=== PATIENT | female | born 1935 | race Caucasian/White ===

== ENCOUNTER 2024-07-28 09:48 | Emergency (ER) | payer OTHER, SELFPAY ==
--- OUTSIDE RECORDS SUMMARY | 2024-07-28 09:51 | XMS_ITS | Clinical Summary ---
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 Gender Identity Not on file Sexual Orientation Not on file Plan of Treatment Health Maintenance Due Date Last Done Comments ADVANCE CARE PLANNING 1936 ANNUAL REVIEW OF HM ORDERS 1936 DEXA 1936 DTAP/TDAP/TD IMMUNIZATION (1 - Tdap) 1961 FALL RISK ASSESSMENT 2001 ZOSTER IMMUNIZATION (2 of 3) 07/30/2007 06/04/2007 RSV VACCINE (1 - 1-dose 75+ series) 2011 COVID-19 Vaccine (3 - season) 2024 07/04/2020, 06/13/2020 INFLUENZA VACCINE (#1) 2024 0, 02/25/2019, 02/24/2019, Additional history exists PHQ-2 (once per calendar year) 2024 Pneumococcal Vaccine: 50+ Years Completed 07/26/2016, 07/30/2012 HPV IMMUNIZATION Aged Out No longer e ligible based on patient's age to complete this topic MENINGITIS IMMUNIZATION Aged Out No l onger eligible based on patient's age to complete this topic RSV MONOCLONAL ANTIBODY Aged Out No l onger eligible based on patient's age to complete this topic Insurance [facility] MEDICARE ADVANTAGE
--- OUTSIDE RECORDS SUMMARY | 2024-07-28 09:51 | XMS_ITS | Clinical Summary ---
Author Organization [facility] Address [address] [place] [id number] Care Team Providers Care Erector Operator Name Role Phone Regine Anderson MD Primary Care Prov ider Allergies Active Allergy Reactions Criticality Noted Date Comments Penicillins Sulfa (Sulfonamide Antibiotics) Medications MULTIVITAMIN TAB Once daily 0 06/04/2007 A ctive loratadine (CLARITIN) 10 mg tablet Take 1 tablet by mouth once daily. 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 Symptomatic menopausal or female climacteric [place] 06/04/2007 Allergic rhinitis, cause unspecified 06/04/2007 Osteoporosis, unspecified 06/04/2007 Encounters Date Type Department Care Team Description 06/03/2024 3:00 PM SHOESHINER Office Visit [facility] [address] [place] [address] Edyta Choi PA Rash (Left arm, 4 days) 06/03/2024 Travel from Last 3 Months Immunizations Immunization Administration Dates Next Due AMB Influenza, IIV3 (Age >=3 years)(Flu Clinic Only) 02/15/2009,05/12/2008 COVID-19 vaccine (Buzzoola NTManomasa 30mcg/0.3mL) PF, MDV 06/13/2020 Hepatitis A (Adult) 02/10/2002 Influenza RIV4 (Age 18+ Year s) PRESERV FREE 02/25/2019 Influenza, High-dose Inactivated 019,02/17/2018,02/27/2017,2015,02/01/2014 Influenza, High-dose Quadriv alent Inactivated 04/25/2023,02/26/2022,02/17/2021,2019 Influenza, IIV3 (Age >=3 years) 02/27/20 13,02/27/2012,03/13/2010,2006,03/27/2005 Influenza, IIV4 02/08/2014 Influenza, IIV4 (=>6mos) MDV 02/07/2015 Pneumococcal Poly,23-Valent (Pneumovax) 07/30/2012 Pneumococcal conj 13-Valent (Prevnar 13) 07/26/2016 Td (Age >=7 Years) 06/22/2004 Tdap 07/30/2012 Typhoid (injectable) 02/10/2002 Zoster (Zostavax-ZVL, live) 06/04/2007 Family History Medical History Relation Name Comments Heart Disease Brother 1 open heart radha g early 50s Heart Disease Brother 2 open heart radha g, had valve replaced. Good Health Daughter 1 Good Health Daughter 2 Good Health Daughter 3 Heart Disease Father Heart Disease Mother open heart radha g 75, lived to 90 Diabetes Sister Heart Disease Sister Anesthesia Problem No Family History Blood Disease No Family History Relation Name Status Comments Brother 1 Brother 2 Daughter 1 Daughter 2 Daughter 3 Father (Age 68) [place] Mother (Age 90) Sister Social History Tobacco Use Types Packs/Day Years Used Date Smoking Tobacco: Never Smokeless Tobacco: Never Tobacco Cessation:Counseling Given: Yes Alcohol Use Standard Drinks/Week Comments Not Currently 1.7 (1 standard drink = 0.6 oz p ure alcohol) 2-3 drinks per month. PHQ-2 Answer Date Recorded PHQ-2 TOTAL SCORE 1 08/02/2021 Social Connections Answer Date Recorded Do you often feel lonely or isolated from those around you? 0 07/26/2023 Financial Resource Strain Answer Date R ecorded Difficulty of Paying Living Expenses 3 07/26/2023 Difficulty of Paying Living Expenses Not on file 07/26/2023 Food Insecurity Answer Date Recorded Do you worry your food will run out before you are able to buy more? 1 07/26/2023 Transportation Needs Answer Date Record ed Does lack of transportation keep you from medica l appointments? 1 07/26/2023 Does lack of transportation keep you from work, meetings or getting things that you need? 1 07/26/2023 Housing Stability Answer Date Recorded What is your housing situation today? 1 07/26/2023 Utilities Answer Date Recorded Do you have trouble paying f or utilities (for example, heat, electricity, water, phone)? 1 07/26/2023 Comments No Sex and Gender Information Value Date Recorded Sex Assigned at Not on file Legal Sex Female 6:02 AM SHOESHINER Gender Identity Not on file Sexual Orientation Not on file Obstetrics History Para Term AB IAB SAB Ectopic Multiple Livin g Live Births 3 3 3 3 Date Outcome GA Total Labor Labor/2nd/3rd Weight Sex Type Anes PTL Mendy A1 A5 Name Clin Term Term Term Last Filed Vital Signs Vital Sign Reading Time Taken Comments Blood Pressure 186/75 06/03/2024 3:06 PM SHOESHINER Pulse 76 06/03/2024 3:06 PM SHOESHINER Temperature 36.7 C (98.1 F) 01/02/2022 1:04 PM CDT Respiratory Rate 16 01/02/2022 1:04 PM CDT Oxygen Saturation 99% 06/03/2024 3:06 PM SHOESHINER Inhaled Oxygen Concentration - - Weight 50 kg (110 lb 4.8 oz) 06/03/2024 3:26 PM SHOESHINER Height 157.5 cm (5' 2) 03/29/2020 1:23 PM SHOESHINER Body Mass Index 20.17 03/29/2020 1:23 PM SHOESHINER Plan of Treatment Health Maintenance Due Date Last Done Comments Zoster (shingles) series for age 50+ (2 of 3) 07/30/2007 06/04/2007 RSV vaccine for adults or (1 - 1-dose 75+ series) 2011 Medicare Wellness for age 65+ 02/28/2020, 11/12/2017, 07/26/2016 BMI (ht and wt on same day) for age 18+ 03/29/2021 03/29/2020, 02/27/2019, 11/12/2017, Additional history exists Tetanus booster 07/30/2022 07/30/2012, 06/22/2004 Depression screening for age 12+ 08/02/2022 08/02/2021, 04/05/2020, 04/01/2020, Additional history exists COVID-19 vaccine series ( season) 2024 03/23/2022, 09/30/2021, 03/15/2021, Additional history exists Influenza Vaccine (#1) 2024 9, 02/24/2019, 02/17/2018, Additional history exists Tdap Completed 07/30/2012 DEXA/DXA scan for age 65+ Completed 08/02/2012, 11/2007 Pneumococcal series for age 50+ Completed 7, 07/30/2012 Procedures Procedure Name Priority Date/Time Associated Diagnosis Comments XR DXA BONE DENSITY 2 SITES AXIAL Routine 08/02/2012 9:17 AM CDT OSTEOPOROSIS from Last 3 Months or Most Recently Relevant to Health Maintenance Results * XR DXA BONE DENSITY 2 SITES (08/02/2012 9:17 AM CDT) Anatomical Region Laterality Modality Spine, HIPS, HIPL, HIPR Other Narrative 08/06/2012 12:07 PM CDT Please see scanned document for results of this study. Procedure Note Silke Camara E - 08/06/2012 Please see scanned document for results of this study. Jesusita Matthews DEXA Final R esult from Last 3 Months or Most Recently Relevant to Health Maintenance Insurance MEDICARE ADVANTAGE MR VERONICA MENDEZ [id number] Advance Directives Documents on File Type Date Recorded Patient Obstetrics And Gynecology Professor Expl anation Healthcare Directive 03/22/2023 023 Care Teams Erector Operator Relationship Specialty Start Date End Date Regine Anderson MD [address] [place] [address] PCP - General Family Practice 10/19/17
[2024-07-28 09:56] VITALS: BP 151/67; PULSE 63; RESP 16; TEMP 36.7; O2SAT 98; BMI 20.4
--- NOTE | 2024-07-28 10:15 | ED_ITS ---
HPI - Neuro Symptoms/Deficit General Time Seen by Provider: 10:15 Date Seen: 07/28/24 Chief Complaint: Neuro Symptoms/Altered Deficit Stated Complaint: stroke this morning possible Time Seen by Provider: 07/28/24 10:15 Source: patient Mode of arrival: ambulatory Limitations: no limitations History of Present Illness HPI Narrative: Tiera is a very pleasant 89-year-old female previously healthy not currently on any medications who comes to the emergency room for evaluation regarding episode of confusion. Tiera noted to be normal going to bed last night but this morning her daughter received a phone call at approximately 0900 hours from her mother stating that she could not remember who she was and wanted to come to the emergency room. Tiera does not remember this at all. Her daughter states that Tiera described not being able to remember who she was and this was very concerning. Again, Tiera does not remember making this phone call. She did not report any pain or recent falls this morning. Nothing seemed to be out of place in her home. She lives independently in [place]. Tiera has not had any recent fever cough cold congestion. No known ill expos ures. She denies urinary symptoms or shortness of breath or chest pain. She is not currently on any medications and does not take blood thinners or aspirin. Tiera's daughter reports that after receiving flu shot in May Tiera had developed a rash of hives on her body 3 days later. She was seen at her clinic and was told to take Benadryl. This rash is now persistently present but only causing itching feelings every other day or so. They do show me the small red raised dots on arms and legs but it is on her entire body. No difficulty with breathing or swelling of the mucous membranes lips or tongue. Related Data Home Medications ?Medication ?Instructions ?Recorded ?Confirmed No Known Home Medications 07/28/24 07/28/24 Allergies Allergy/AdvReac Type Severity Reaction Status Date / Time No Known Drug Allergies Allergy Verified 07/28/24 10:05 Review of Systems Status of ROS: Reports: 10 or more systems reviewed and unremarkable except as noted in History and below Const: Denies: fever, chills, change in weight or fatigue Eyes: Denies: change in vision ENMT: Denies: throat pain, neck pain, throat swelling or nasal congestion Cardio: Denies: chest pain, palpitations, edema, swelling of feet/ankles, lightheadedness or shortness of breath with exertion Resp: Denies: shortness of breath or cough GI: Denies: abdominal pain, vomiting or diarrhea : Denies: painful urination, urinary frequency or urinary urgency Musculo: Denies: neck pain Integ/Breast: Reports: rash Neuro: Denies: headache, numbness in extremities, weakness in extremities, lack of coordination or dizziness Endo: Denies: fatigue Allergy/Immuno: Denies: throat swelling PFSH PFSH Social History Smoking Status: Never smoker How often do you have a drink containing alcohol: never AUDIT-C Alcohol total score: 0 Non-prescribed substance use: denies use Exam Narrative: Exam Narrative: Tiera is alert and oriented. She has good mentation. She knew she was 89 years old and initially pause before naming her here but was able to name that without assistance. EOM is full and pupils are equal round and reactive. Head is atraumatic normocephalic. Neck is supple. Heart with a regular rate and rhythm and lungs are clear bilaterally. Abdomen is soft nontender. Moving all extremities. Romberg is negative. [id number] is intact bilaterally. Able to lift both legs off gurney and is dextrose. NIH SS 0 Const: Vital Signs, click to edit/add: Vital Signs - 24 hr 07/28/24 09:56 07/28/24 11:01 07/28/24 11:31 Temperature 98.0 F Pulse Rate 62 70 Pulse Rate [Pulse Oximeter] 63 Respiratory Rate 16 19 19 Blood Pressure 161/73 H 166/68 H Blood Pressure [Ri ght Upper Arm] 151/67 H Pulse Oximetry 98 99 99 Oxygen Delivery Me thod Room Air Room Air 07/28/24 14:38 07/28/24 16:07 07/28/24 17:45 Temperature Pulse Rate 75 83 69 Pulse Rate [Pulse Oximeter] Respiratory Rate 16 14 16 Blood Pressure 172/78 H 160/90 H 156/93 H Blood Pressure [Ri ght Upper Arm] Pulse Oximetry 94 70 L 97 Oxygen Delivery Me thod Room Air Room Air Documenting provider has reviewed patient's vital signs: yes Course Course ED Course: Differential diagnosis includes but is not limited to TIA, seizure, urinary tract infection, electrolyte imbalance, COVID. Will place IV and check electrolytes and labs to include CBC, comprehensive panel, COVID influenza RSV, CRP, urinalysis, troponin and EKG. Will also obtain chest x-ray, CT head CTA head and neck and plan on consulting Neurology. Reevaluation(s) Reevaluation #1: CT and CTA reassuring at this time. At the pleasure of speaking to Neurology at [facility]. They do agree with MRI of the brain and initiating patient on baby aspirin daily. No evidence of UTI, electrolyte abnormality, COVID influenza RSV or elevated troponin. I do feel that 1 troponin is sufficient at this time as she is not experiencing any chest pain and her EKG is reassuring. Reevaluation #2: Patient continues to be within normal limits without any recurrence of symptoms. Consultations Consultation #1: Did consult with Neurology at [facility] After CT/ CTA as well as laboratory values. Vital Signs Vital signs: Initial Vital Signs Temperature 98.0 F 07/28/24 09:56 Temperature Source Temporal Artery Scan 07/28/24 09:56 Pulse Rate 63 07/28/24 09:56 Respiratory Rate 16 07/28/24 09:56 Blood Pressure 151/67 H 07/28/24 09:56 Blood Pressure Mean 95 07/28/24 09:56 Blood Pressure Position Sitting 07/28/24 09:56 Pulse Oximetry 98 07/28/24 09:56 Oxygen Delivery Method Room Air 07/28/24 09:56 Vital Signs Temperature 98.0 F 07/28/24 09:56 Pulse Rate 63 07/28/24 09:56 Respiratory Rate 16 07/28/24 09:56 Blood Pressure 151/67 H 07/28/24 09:56 Pulse Oximetry 98 07/28/24 09:56 Oxygen Delivery Method Room Air 07/28/24 09:56 Temperature 98.0 F 07/28/24 09:56 Pulse Rate 69 07/28/24 17:45 Respiratory Rate 16 07/28/24 17:45 Blood Pressure 156/93 H 07/28/24 17:45 Pulse Oximetry 97 07/28/24 17:45 Oxygen Delivery Method Room Air 07/28/24 17:45 Medications Administered Medications: Discontinued Medications Generic Name Dose Route Start Last Admin Trade Name Freq PRN Reason Stop Dose Admin Aspirin 81 mg 07/28/24 15:45 07/28/24 16:11 Aspirin 81 Mg Tablet Ec PO 07/28/24 15:46 81 mg ONCE ONE Administration Cetirizine HCl 10 mg 07/28/24 13:45 07/28/24 13:50 Cetirizine Hcl 10 Mg Tablet PO 07/28/24 13:46 10 mg ONCE ONE Administration Sodium Chloride 500 mls @ 500 mls/hr 07/28/24 12:40 07/28/24 14:39 0.9 % Sodium Chloride 500 Ml IV 07/28/24 13:39 Infused .Q1H ONE Infusion MDM - Neuro Symptoms/Deficit MDM Narrative Medical decision making narrative: 1. Episode of confusion -strongly suspect TIA but CT, CTA and MRI are all reassuring only with chronic findings. At this time patient had been given aspirin 81 mg in the ED. Would like her to continue this daily until she is seen in follow-up by her primary MD. At that time she should have her cholesterol and lipids checked. 2. Disposition -Home at this time. Return for worsening symptoms and as needed. Lab Data Attestation: I reviewed the patient's lab results. Labs: Lab Results 07/28/24 07/28/24 Range/Units 11:15 11:42 WBC 6.06 (4.50-11.00) K/uL RBC 4.47 (4.00-5.20) m/uL Hgb 13.7 (12.0-16.0) gm/dL Hct 41.8 (33.0-51.0) % MCV 94 (80-100) fL MCH 31 (26-34) pg MCHC 33 (32-36) gm/dL RDW Coeff of Maisha 12.3 (11.5-15.5) % Plt Count 164 (140-440) K/uL Neut % (Auto) 63.6 (42.0-72.0) % Lymph % (Auto) 23.8 (20-44) % [place] % (Auto) 6.6 (0.0-11.0) % Eos % (Auto) 5.3 (0.0-7.0) % Baso % (Auto) 0.5 (0.0-3.0) % Neut # (Auto) 3.86 (1.7-7.0) K/uL Lymph # (Auto) 1.44 (0.90-2.90) K/uL [place] # (Auto) 0.40 (0.00-0.90) K/UL Eos # (Auto) 0.32 (0.00-0.50) K/uL Baso # (Auto) 0.03 (0.00-0.30) K/uL Abs Immat Gran (auto) 0.01 (0.00-0.30) K/uL Imm/Tot Granulo (auto) 0.2 % Sodium 140 (135-149) mmol/L Potassium 4.4 (3.6-5.1) mmol/L Chloride 103 (96-114) mmol/L Carbon Dioxide 30 (20-32) mmol/L Anion Gap 7 (7-15) mEq/L BUN 21 (7-30) mg/dL Creatinine 0.8 (0.5-1.5) mg/dL Estimated Creat Clear 30.76 Estimated GFR 71 ml/min Glucose 88 (60-115) mg/dL Calcium 9.4 (8.4-10.6) mg/dL Total Bilirubin 0.4 (0.1-1.5) mg/dL AST 24 (12-35) U/L ALT 13 (4-35) U/L Alkaline Phosphatase 89 (40-150) U/L C-Reactive Protein 0.6 (0.5-1.0) mg/dL Total Protein 7.1 (6.0-8.3) g/dL Albumin 4.3 (3.3-5.0) g/dL Urine Color Light yellow (Yellow) Urine Appearance Clear (Clear) Urine pH 6.5 (5.0-8.5) Ur Specific [place] 1.010 (1.000-1.030) Urine Protein Negative (Negative) Urine Glucose (UA) Negative (Negative) Urine Ketones Negative (Negative) Urine Blood Negative (Negative) Urine Nitrite Negative (Negative) Urine Bilirubin Negative (Negative) Urine Urobilinogen 0.2 (0.2-1.0) Ur Leukocyte Esterase Negative (Negative) Urine RBC 0-2 (0-2) Urine WBC 0-2 (0-5) Ur Squamous Epith Cells None (None-Few) Urine Bacteria None (None) SARS-CoV-2 (PCR) Negative SARS-CoV-2 (Negative) Influenza Type A (PCR) Negative PCR FLU A (Negative) Influenza Type B (PCR) Negative PCR FLU B (Negative) RSV (PCR) Negative PCR RSV (Negative) POC Troponin I 0.00 L (0.01-0.04) ng/ml Imaging Data Chest x-ray: Attestation: I have reviewed the pertinent imaging results. Radiologist's impression: FINDINGS: Cardiac silhouette is enlarged. No infiltrate or edema. No effusion or pneumothorax. IMPRESSION: No acute findings. CT scan - head: Attestation: I have reviewed the pertinent imaging results. My impression: I do not note any acute findings Radiologist's impression: SF spaces: Within normal limits for age. Brain parenchyma and extra-axial spaces: There are nonspecific low attenuation white matter changes consistent with chronic microvascular disease. No sign of mass, hemorrhage, or midline shift. Skull base and calvarium: The visualized paranasal sinuses and mastoid air cells demonstrate no acute or significant findings. The visualized orbits are grossly unremarkable. No skull fractures. IMPRESSION: No acute intracranial process identified. white matter hypodensities likely related to small vessel ischemic changes. CTA head and neck: Attestation: I have reviewed the pertinent imaging results. Radiologist's impression: There is carotid atherosclerosis. There is no significant carotid artery stenosis or dissection. There is no significant vertebral artery stenosis or dissection. The soft tissues of the neck are within normal limits. The cervical spine is in normal alignment. Degenerative changes are noted in the cervical spine. IMPRESSION: No significant carotid or vertebral artery stenosis or dissection. MR Brain: Attestation: I have reviewed the pertinent imaging results. Radiologist's impression: The ventricles and cortical sulci are age-appropriate in size and configuration. No midline shift or mass effect. No acute intracranial hemorrhage or abnormal extra-axial fluid collection. No evidence of acute/subacute ischemia. Scattered focal and slightly confluent areas of FLAIR hyperintensity are noted throughout the cerebral white matter typical of chronic microangiopathy. Midline structures are unremarkable. The major expected intracranial flow voids are visualized. Included bone marrow signal is unremarkable. No suspicious findings in the regional soft tissues. No obstructive paranasal sinus disease or significant mastoid effusion. Bilateral lens implants. Impression: 1. No evidence of acute intracranial abnormality. 2. Mild generalized cerebral volume loss and mild-moderate chronic microangiopathy changes. ECG Data Attestation: I personally reviewed and interpreted this ECG as follows: ECG interpretation date: 07/28/24 Interpretation: EKG by my read shows sinus rhythm at a rate of 67. Q-wave noted in V1 questionable old septal infarct otherwise no acute ST or T-wave changes. QT and OH intervals within normal limits. Discharge Plan Discharge Clinical Impression: Brain TIA Patient Disposition: Home, Self-Care Condition: Improved Additional Instructions: Continue an aspirin daily follow up with primary md for recheck return for worsening symptoms Prescriptions: No Action No Known Home Medications Follow Up/Referrals: Provider,Not a Local [Primary Care Provider] - Stand Alone Forms: [employer] Info Instructions
--- NOTE | 2024-07-28 10:27 | CRLHL7_ITS ---
For Patients: As a result of the Cures Act, medical imaging exams and procedure reports are released immediately into your electronic medical record. You may view this report before your referring provider. If you have questions, please contact your health care provider. INDICATION: Confusion TECHNIQUE: Chest 1 view COMPARISON: None FINDINGS: Cardiac silhouette is enlarged. No infiltrate or edema. No effusion or pneumothorax. IMPRESSION: No acute findings. Dictated by Andry Griffin MD @ 07/28/2024 12:21:50 PM (Electronically Signed)
--- NOTE | 2024-07-28 10:27 | CRLHL7_ITS ---
For Patients: As a result of the Century Cures Act, medical imaging exams and procedure reports are released immediately into your electronic medical record. You may view this report before your referring provider. If you have questions, please contact your health care provider. INDICATION: Acute stroke. TECHNIQUE: CTA neck with contrast bolus tracking, 3D angiographic rendering using maximum intensity projection (MIP) and images permanently archived. FINDINGS: There is carotid atherosclerosis. There is no significant carotid artery stenosis or dissection. There is no significant vertebral artery stenosis or dissection. The soft tissues of the neck are within normal limits. The cervical spine is in normal alignment. Degenerative changes are noted in the cervical spine. IMPRESSION: No significant carotid or vertebral artery stenosis or dissection. Please note that all CT scans at this facility use dose modulation, iterative reconstruction, and/or weight-based dosing when appropriate to reduce radiation dose to as low as reasonably achievable. Dictated by Fernando Stevens MD @ 07/28/2024 4:11:14 PM (Electronically Signed)
--- NOTE | 2024-07-28 10:27 | CRLHL7_ITS ---
For Patients: As a result of the Century Cures Act, medical imaging exams and procedure reports are released immediately into your electronic medical record. You may view this report before your referring provider. If you have questions, please contact your health care provider. INDICATION: Acute stroke. TECHNIQUE: CTA head with contrast bolus tracking, 3D angiographic rendering using maximum intensity projection (MIP) and images permanently archived. FINDINGS: There is normal opacification of the intracranial vasculature. There is no large vessel occlusion. No aneurysm is identified. IMPRESSION: Unremarkable head CTA. Please note that all CT scans at this facility use dose modulation, iterative reconstruction, and/or weight-based dosing when appropriate to reduce radiation dose to as low as reasonably achievable. Dictated by Fernando Stevens MD @ 07/28/2024 4:12:32 PM (Electronically Signed)
--- NOTE | 2024-07-28 10:27 | CRLHL7_ITS ---
For Patients: As a result of the Century Cures Act, medical imaging exams and procedure reports are released immediately into your electronic medical record. You may view this report before your referring provider. If you have questions, please contact your health care provider. INDICATION: Confusion. TECHNIQUE: Head CT without contrast. COMPARISON: None. FINDINGS: CSF spaces: Within normal limits for age. Brain parenchyma and extra-axial spaces: There are nonspecific low attenuation white matter changes consistent with chronic microvascular disease. No sign of mass, hemorrhage, or midline shift. Skull base and calvarium: The visualized paranasal sinuses and mastoid air cells demonstrate no acute or significant findings. The visualized orbits are grossly unremarkable. No skull fractures. IMPRESSION: No acute intracranial process identified. white matter hypodensities likely related to small vessel ischemic changes. Please note that all CT scans at this facility use dose modulation, iterative reconstruction, and/or weight-based dosing when appropriate to reduce radiation dose to as low as reasonably achievable. Dictated by Tom Calloway MD @ 07/28/2024 1:17:17 PM (Electronically Signed)
[2024-07-28 11:01] VITALS: BP 161/73; PULSE 62; RESP 19; O2SAT 99
[2024-07-28 11:30] LABS: Basophils Absolute Auto 0.03 K/uL (0.00-0.30); Basophils Percent Auto 0.5 % (0.0-3.0); Eosinophils Absolute Auto 0.32 K/uL (0.00-0.50); Eosinophils Percent Auto 5.3 % (0.0-7.0); Hematocrit 41.8 % (33.0-51.0); Hemoglobin* 13.7 gm/dL (12.0-16.0); Immature Granulocytes Abs Auto 0.01 K/uL (0.00-0.30); Immature Granulocytes Pct Auto 0.2 %; Lymphocytes Absolute Auto 1.44 K/uL (0.90-2.90); Lymphocytes Percent Auto 23.8 % (20-44); Mean Corpuscular HGB Conc 33 gm/dL (32-36); Mean Corpuscular Hemoglobin 31 pg (26-34); Mean Corpuscular Volume 94 fL (80-100); Monocytes Percent Auto 6.6 % (0.0-11.0); Neutrophils Absolute Auto 3.86 K/uL (1.7-7.0); Neutrophils Percent Auto 63.6 % (42.0-72.0); Platelet Count* 164 K/uL (140-440); RDW Coefficient of Variation % 12.3 % (11.5-15.5); Red Blood Count 4.47 m/uL (4.00-5.20); White Blood Count* 6.06 K/uL (4.50-11.00)
[2024-07-28 11:31] VITALS: BP 166/68; PULSE 70; RESP 19; O2SAT 99
[2024-07-28 11:45] LABS: Albumin* 4.3 g/dL (3.3-5.0); Chloride* 103 mmol/L (96-114)
[2024-07-28 11:46] LABS: Potassium* 4.4 mmol/L (3.6-5.1); Sodium* 140 mmol/L (135-149)
[2024-07-28 11:48] LABS: Blood Urea Nitrogen* 21 mg/dL (7-30); Creatinine* 0.8 mg/dL (0.5-1.5); Est. Creatinine Clearance* 30.76; Estimated Glomerular Filt Rate 71 ml/min
[2024-07-28 11:49] LABS: Alanine Aminotransferase* 13 U/L (4-35); Alkaline Phosphatase* 89 U/L (40-150); Anion Gap 7 mEq/L (7-15); Aspartate Amino Transferase* 24 U/L (12-35); Bilirubin Total* 0.4 mg/dL (0.1-1.5); Calcium* 9.4 mg/dL (8.4-10.6); Carbon Dioxide* 30 mmol/L (20-32); Glucose* 88 mg/dL (60-115); Total Protein* 7.1 g/dL (6.0-8.3)
[2024-07-28 11:51] LABS: C Reactive Protein* 0.6 mg/dL (0.5-1.0)
[2024-07-28 12:13] LABS: Slide Review Reflex No
[2024-07-28 12:14] LABS: PCR FLU A Negative PCR FLU A (Negative); PCR FLU B Negative PCR FLU B (Negative); PCR RSV Negative PCR RSV (Negative); SARS PCR* Negative SARS-CoV-2 (Negative)
[2024-07-28 12:32] LABS: Appearance Urine Clear (Clear); Bilirubin Urine Negative (Negative); Blood Urine Negative (Negative); Color Urine Light yellow (Yellow); Glucose Urine Negative (Negative); Ketones Urine Negative (Negative); Leukocyte Esterase Urine Negative (Negative); Nitrite Urine Negative (Negative); Protein Urine Negative (Negative); Urobilinogen Urine 0.2 (0.2-1.0); pH Urine 6.5 (5.0-8.5)
[2024-07-28] MEDS: 0.9 % SODIUM CHLORIDE 500 ML 500 ML IV (13:09)
[2024-07-28 13:14] LABS: RBC Urine 0-2 (0-2); WBC Urine 0-2 (0-5)
[2024-07-28] MEDS: CETIRIZINE HCL 10 MG TABLET PO (13:50)
--- NOTE | 2024-07-28 13:53 | CRLHL7_ITS ---
For Patients: As a result of the Century Cures Act, medical imaging exams and procedure reports are released immediately into your electronic medical record. You may view this report before your referring provider. If you have questions, please contact your health care provider. Indication: Episode of confusion and memory loss Technique: Multiplanar, multisequence MRI of the brain obtained without contrast. Comparison: Earlier same day CT head and CTA head/neck Findings: The ventricles and cortical sulci are age-appropriate in size and configuration. No midline shift or mass effect. No acute intracranial hemorrhage or abnormal extra-axial fluid collection. No evidence of acute/subacute ischemia. Scattered focal and slightly confluent areas of FLAIR hyperintensity are noted throughout the cerebral white matter typical of chronic microangiopathy. Midline structures are unremarkable. The major expected intracranial flow voids are visualized. Included bone marrow signal is unremarkable. No suspicious findings in the regional soft tissues. No obstructive paranasal sinus disease or significant mastoid effusion. Bilateral lens implants. Impression: 1. No evidence of acute intracranial abnormality. 2. Mild generalized cerebral volume loss and mild-moderate chronic microangiopathy changes. Dictated by Leslie William MD @ 07/28/2024 5:36:08 PM (Electronically Signed)
[2024-07-28 14:38] VITALS: BP 172/78; PULSE 75; RESP 16; O2SAT 94
[2024-07-28 16:07] VITALS: BP 160/90; PULSE 83; RESP 14; O2SAT 70
[2024-07-28] MEDS: ASPIRIN 81 MG TABLET EC PO (16:11)
[2024-07-28 17:45] VITALS: BP 156/93; PULSE 69; RESP 16; O2SAT 97
== END 2024-07-28 17:53 | disposition home or self-care (01) ==
PROVIDERS: Emergency Provider Family Medicine
DX: G45.9 Transient cerebral ischemic attack, unspecified (principal)
CPT/HCPCS: 36415; 70450; 70496; 70498; 70551; 71045; 80053; 81001; 84484; 85025; 86140; 87631; 93005; 99284; 99285; A9270; J7030; Q9967